=== PATIENT | male | born 1985 | race Caucasian/White ===

== ENCOUNTER → 2016-09-15 | Outpatient (CLI) | payer BC | LOC: BHSO 15:54 | DX: F42.8 Other obsessive-compulsive disorder (principal) ==

== ENCOUNTER → 2017-03-16 | Outpatient (CLI) | payer BC | LOC: BHSO 15:28 | DX: F41.1 Generalized anxiety disorder (principal) | CPT/HCPCS: G0463 ==

== ENCOUNTER → 2017-09-14 | Outpatient (CLI) | payer BC | LOC: BHSO 14:40 | DX: F42.8 Other obsessive-compulsive disorder (principal) | CPT/HCPCS: G0463 ==

== ENCOUNTER → 2018-03-08 | Outpatient (CLI) | payer BC | LOC: BHSO 16:19 | DX: F42.8 Other obsessive-compulsive disorder (principal) | CPT/HCPCS: G0463 ==

== ENCOUNTER → 2018-09-27 | Outpatient (CLI) | payer BC | LOC: BHSO 16:09 | DX: F42.8 Other obsessive-compulsive disorder (principal) | CPT/HCPCS: G0463 ==

== ENCOUNTER → 2019-04-18 | Outpatient (CLI) | payer BC | LOC: BHSO 15:49 | DX: F41.1 Generalized anxiety disorder (principal) | CPT/HCPCS: G0463 ==

== ENCOUNTER → 2019-10-17 | Outpatient (CLI) | payer BC | LOC: BHSO 16:00 | DX: F42.8 Other obsessive-compulsive disorder (principal) | CPT/HCPCS: G0463 ==